=== PATIENT | female | born 1985 | race Two or more races ===

== ENCOUNTER 2017-07-09 14:05 | Observation (INO) | payer MEDICAID, OTHER ==
[2017-07-09] MEDS ORDERED: LACTATED RINGER'S 1,000 ML IV ONE (14:39)
[2017-07-09] MEDS ORDERED: PREN-153 OR (14:43)
[2017-07-09 15:07] LABS: Urine Bacteria NONE SEEN /hpf (None Seen); Urine Blood Negative /uL (Negative); Urine Specific Gravity 1.012 (1.001-1.035); Urine WBC 1 /hpf (0 - 5)
== END 2017-07-09 15:55 | disposition home or self-care (01) | DRG 955 ==
LOC: LDRP 14:05
PROVIDERS: ADMIT Obstetrics & Gynecology; ATTEND Obstetrics & Gynecology
DX: O26.899 Other specified pregnancy related conditions, unspecified trimester (principal); R10.9 Unspecified abdominal pain; O62.9 Abnormality of forces of labor, unspecified; Z3A.00 Weeks of gestation of pregnancy not specified
CPT/HCPCS: 59025; 81001; 81002; G0378

== ENCOUNTER 2017-07-25 00:46 | Observation (INO) | payer OTHER ==
[~2017-07-25 00:46] MED LIST: PREN-153 OR
[2017-07-25] MEDS ORDERED: TERBUTALINE SULFATE 1 MG/ML 1ML VIAL SC PRN (01:15)
[2017-07-25] MEDS ORDERED: TERBUTALINE SULFATE 1 MG/ML 1ML VIAL SC ONE (01:20)
== END 2017-07-25 01:50 | disposition left against medical advice (07) | DRG 563 ==
LOC: LDRP 00:46
PROVIDERS: ADMIT Specialist; ATTEND Specialist
DX: O60.03 Preterm labor without delivery, third trimester (principal); Z3A.30 30 weeks gestation of pregnancy
CPT/HCPCS: 59025; 81002; G0378; J3105; 96372